=== PATIENT | female | born 1945 | race Asian ===

== ENCOUNTER 2018-10-25 05:41 | Day surgery (SDC) | payer MEDICARE, OTHER ==
[~2018-10-25] VITALS: Ht 154.9 cm; Wt 62.0 kg
[~2018-10-25 05:41] MED LIST: ALLO100T PO; AMLO-512 PO; APIX5TAB PO; ASPI-1182 PO; ATEN50TA PO; HYDR25TA PO; LISI-662 PO; SIMV-260 PO
[2018-10-25] MEDS ORDERED: HYALURONATE SOD/CHONDROITIN SOD 0.5 ML VIAL IO ONE (05:42)
[2018-10-25] MEDS ORDERED: POVIDONE-IODINE 10% 15 ML SOLUTION UD TP ONE (05:42)
[2018-10-25] MEDS ORDERED: LIDOCAINE/PF 1% 2 ML VIAL IM ONE (05:42)
[2018-10-25] MEDS ORDERED: HYALURONATE SODIUM 12 MG/ML 0.8 ML SYRINGE IO ONE (05:42)
[2018-10-25] MEDS ORDERED: MIDAZOLAM HCL 2 MG/2 ML VIAL IVP ONE (05:42)
[2018-10-25] MEDS ORDERED: EPINEPHrine 1:1,000 [1 MG/ML] AMP IM ONE (05:42)
[2018-10-25] MEDS ORDERED: FentaNYL CITRATE-PF 100 MCG/2 ML VIAL IVP ONE (05:42)
[2018-10-25] MEDS ORDERED: RINGERS SOLUTION,LACTATED 500 ML IV ONE ×2 (05:59→06:00)
[2018-10-25] MEDS ORDERED: TETRACAINE HCL/PF 0.5% 4 ML OPHTHALMIC SOLUTION OS ONE (06:00)
[2018-10-25] MEDS ORDERED: TROPICAMIDE 1% 2 ML OPHTHALMIC SOLUTION ONE (06:00)
[2018-10-25] MEDS ORDERED: PHENYLEPHRINE HCL 2.5% 2 ML OPHTHALMIC SOLUTION ONE (06:00)
[2018-10-25] MEDS ORDERED: CYCLOPENTOLATE HCL 1% 2 ML OPHTHALMIC SOLUTION ONE (06:00)
[2018-10-25] MEDS ORDERED: OFLOXACIN 0.3% 5 ML OPHTHALMIC SOLUTION ONE (06:01)
[2018-10-25] MEDS ORDERED: FLURBIPROFEN SODIUM 0.03% 2.5 ML OPHTHALMIC SOLUTION ONE (06:01)
[2018-10-25] MEDS ORDERED: TETRACAINE HCL/PF 0.5% 4 ML OPHTHALMIC SOLUTION ONE (06:02)
[2018-10-25] MEDS: CYCLOPENTOLATE HCL 1% 2 ML OPHTHALMIC SOLUTION OS SCH ×3 (06:30→06:48)
[2018-10-25] MEDS: OFLOXACIN 0.3% 5 ML OPHTHALMIC SOLUTION OS SCH ×3 (06:30→06:48)
[2018-10-25] MEDS: PHENYLEPHRINE HCL 2.5% 2 ML OPHTHALMIC SOLUTION OS SCH ×3 (06:31→06:48)
[2018-10-25] MEDS: FLURBIPROFEN SODIUM 0.03% 2.5 ML OPHTHALMIC SOLUTION OS SCH ×3 (06:31→06:48)
[2018-10-25] MEDS: TROPICAMIDE 1% 2 ML OPHTHALMIC SOLUTION OS SCH ×3 (06:31→06:48)
[2018-10-25] MEDS ORDERED: POLY17PO29 PO (07:04)
[2018-10-25] MEDS ORDERED: COLC0.6T67 PO (07:04)
[2018-10-25] MEDS ORDERED: HYDR25TA PO (07:04)
[2018-10-25] MEDS ORDERED: FLUT16H NASAL (07:04)
[2018-10-25] MEDS ORDERED: CETI-290 PO (07:04)
[2018-10-25] MEDS ORDERED: LISI-662 PO (07:04)
[2018-10-25] MEDS ORDERED: ERGO2000 PO (07:04)
== END 2018-10-25 09:15 | disposition home or self-care (01) ==
LOC: SDS 05:41
PROVIDERS: ATTEND Ophthalmology
DX: H25.12 Age-related nuclear cataract, left eye (principal); I48.91 Unspecified atrial fibrillation; E78.00 Pure hypercholesterolemia, unspecified; I11.9 Hypertensive heart disease without heart failure; M19.90 Unspecified osteoarthritis, unspecified site; M10.9 Gout, unspecified; Z79.01 Long term (current) use of anticoagulants; Z85.810 Personal history of malignant neoplasm of tongue; Z79.82 Long term (current) use of aspirin; Z79.891 Long term (current) use of opiate analgesic; Z98.890 Other specified postprocedural states; Z79.899 Other long term (current) drug therapy
CPT/HCPCS: 66984; 93005; C1780; J0171; J2250; J3010; J3490 ×2; J7120